=== PATIENT | female | born 1950 | race Caucasian/White ===

== ENCOUNTER → 2019-05-07 14:52 | Outpatient (BNVA) | payer BC, MEDICARE, SELFPAY | PROVIDERS: Family Provider Nurse Practitioner Family; PCP Nurse Practitioner Family; Visit Provider Nurse Practitioner Family | DX: R42 Dizziness and giddiness (principal); I10 Essential (primary) hypertension; E03.9 Hypothyroidism, unspecified; E78.5 Hyperlipidemia, unspecified; M54.9 Dorsalgia, unspecified; D64.9 Anemia, unspecified; G62.9 Polyneuropathy, unspecified; Z78.9 Other specified health status; G89.29 Other chronic pain | CPT/HCPCS: 80053; 80061; 84443; 85025 ==